=== PATIENT | male | born 1980 | race African-American/Black ===

== ENCOUNTER 2022-07-05 10:49 | Emergency (ER) | payer OTHER ==
[~2022-07-05] VITALS: Ht 170.2 cm; Wt 79.9 kg
[2022-07-05] MEDS ORDERED: VEML25TA PO (11:14)
[2022-07-05] MEDS ORDERED: MOTR200T44 PO (11:14)
[2022-07-05] MEDS ORDERED: LIDOCAINE 4% CREAM 5GM (LMX4) TOP ONE (14:05)
[2022-07-05 14:28] VITALS: BP 174/99
== END 2022-07-05 14:39 | disposition home or self-care (01) ==
LOC: M ED 10:49
DX: M19.011 Primary osteoarthritis, right shoulder (principal); M25.511 Pain in right shoulder; B19.10 Unspecified viral hepatitis B without hepatic coma; Z79.1 Long term (current) use of non-steroidal anti-inflammatories (NSAID); Z79.899 Other long term (current) drug therapy

== ENCOUNTER → 2023-09-24 | Outpatient (CLI) | payer OTHER ==
[~2023-09-24] MED LIST: MOTR200T44 PO; VEML25TA PO
[2023-09-24 16:58] LABS: PLATELET COUNT, AUTOMATED 238 10^3/uL (150-450)
[2023-09-24 17:29] LABS: INR 1.05; PARTIAL THROMBOPLASTIN TIME 27.7 SECONDS (24.8-34.2); PROTHROMBIN TIME 13.4 SECONDS (12.5-14.5)
== END ==
LOC: M LAB 16:17
PROVIDERS: ATTEND Physician Assistant Surgical
DX: Z01.812 Encounter for preprocedural laboratory examination (principal)